=== PATIENT | female | born 1965 | race Two or more races ===

== ENCOUNTER 2016-11-13 11:58 | Emergency (ER) | payer OTHER ==
--- NOTE | 2016-11-13 13:19 | UCPHY ---
H & P Patient Type: New Chief Complaint Nursing Narrative: 3 DAYS NOT FEELING WELL, STUFFY NOSE, TEETH HURTING, BODY ACHES, LOW ENERGY, HEADACHE HPI/ROS: CHIEF COMPLAINT: Sinus congestion HISTORY OF PRESENT ILLNESS: This patient is a 51 year old woman presenting with three days of acute sinus congestion and rhinorrhea. It is associated with myalgias, episode of left ear pain and tinnitus yesterday, and decreased hearing in her left ear. Symptoms are mild-moderate in severity. She has been taking DayQuil for sinus congestion. She denies fever, cough, sore throat, chest pain, shortness of breath, vomiting, diarrhea, or dysuria. REVIEW OF SYSTEMS: A ten point review of systems was performed and is negative with the exception of the items mentioned in the HPI. Source: Patient Exam Limitations: No limitations - Personal History LMP (Females 10-55): 8-14 Days Ago Current Tetanus Diphtheria and Acellular Pertussis (TDAP): No - Medical/Surgical History Hx Asthma: No Hx Chronic Respiratory Disease: No Hx Diabetes: No Hx Cardiac Disease: No Hx Renal Disease: No Hx Cirrhosis: No Hx Alcoholism: No Hx HIV/AIDS: No Hx Splenectomy or Spleen Trauma: No Other PMH: C SECTIONS - Family History Significant Family History: No pertinent family hx - Social History Smoking Status: Never smoked Alcohol Use: Rarely Drug Use: None - Physical Exam Exam: General Appearance: Alert. Vital signs reviewed. Eyes: Pupils equal and round, no conjunctival injection, no discharge. Anicteric. ENT, Mouth: TMs clear bilaterally. Mucous membranes are moist, no oropharyngeal erythema or edema. Right maxillary sinus tenderness, mild. Neck: Mild anterior lymphadenopathy, supple. Respiratory: Lungs are clear to auscultation; no wheezes, rales, or rhonchi. Cardiovascular: Regular rate and rhythm; no murmur, rub, or gallop. Gastrointestinal: Abdomen is soft and nontender, no masses or organomegaly, bowel sounds normal. Skin: Warm and dry, no rashes on exposed skin, normal color. Back: Nontender to palpation over the thoracolumbar spine. No CVAT. Extremities: No lower extremity edema, no calf tenderness or swelling. Neurological: Alert and oriented. Moving all four extremities easily and equally. Psychiatric: Normal affect. Constitutional: Initial Vital Signs Temperature (C) 37.9 C 03/25/17 12:05 Heart Rate 84 11/13/16 12:05 Respiratory Rate 16 11/13/16 12:05 Blood Pressure 127/79 H 11/13/16 12:05 O2 Sat (%) 97 11/13/16 12:05 O2 Delivery Mode Room Air Allergies/Adverse Reactions: No Known Allergies Allergy (Unverified 11/13/16 12:09) Home Medications: Medication Instructions Recorded Vitamin D3 11/13/16 Medical Decision Making ED Course/Re-evaluation: This patient presents with three days of upper respiratory symptoms. Rapid influenza test is negative. I discussed that this is likely a viral syndrome/ viral upper respiratory infection. She will follow up with her primary care provider if not improving. Symptomatic treatment reviewed. Differential Diagnosis: I considered a ddx that includes but is not limited to influenza, sinusitis, viral and bacterial pharyngitis, URI, pneumonia. Departure - Departure Disposition: Home, Routine, Self-Care Clinical Impression: Upper respiratory infection Qualifiers: URI type: unspecified viral URI Qualified Code(s): J06.9 - Acute upper respiratory infection, unspecified; B97.89 - Other viral agents as the cause of diseases classified elsewhere Condition: Good Instructions: Upper Respiratory Infection (ED) Additional Instructions: I recommend Tylenol and ibuprofen for pain relief. Drink plenty of fluids. Over- the-counter cold medications and decongestants may be helpful to you. Follow up with your primary care physician if not improving. [facility] immediately for high fever, severe headache or neck pain, difficulty breathing, abdominal pain, rash or other worsening of condition. Adult Pain & Fever Control: We recommend Acetaminophen (Tylenol) and Ibuprofen (Motrin,Advil) for pain and fever control. When fever is high or pain severe, both drugs can be used at the same time, but at different intervals. Please note the time differences. Your dose is: Acetaminophen 650mg every 4 to 6 hours Ibuprofen 600mg every 6-8 hours with food Note: do not take Acetaminophen with Hydrocodone (Vicodin, Lortab) or Oycodone (Percocet). These medications also contain Acetaminophen. No more than 3000mg of Acetaminophen should be taken in 24 hours (for an adult). This patient was seen in the [facility] 11/13/16. She was not able to drive to [place] due to her illness, and therefore she was unable to be there to meet her sons in [place]. As a result, her sons are not able to use the airplane tickets that they have purchased. Referrals: VIVIEN VERGARA [Primary Care Provider] - As per Instructions Stand Alone Forms: Airline Excuse - PQRS PQRS Measurement: Does not apply. Report Scribed for: Karla Macedo Report Scribed by: Joy Eubanks Date of Report: 11/13/16 Time of Report: 13:29 Physician Review and Approval Statement: 11/13/16 16:13 Portions of this note were transcribed by the medical doctor md. I, Dr. Karla Macedo, personally performed the history, physical exam, and medical decision- making; and confirmed the accuracy of the information in the transcribed note.
[2016-11-13 13:48] VITALS: BP 122/85; PULSE 69; RESP 18; TEMP 98.6; O2SAT 96
== END 2016-11-13 13:47 | disposition home or self-care (01) ==
LOC: CED 11:58
DX: J06.9 Acute upper respiratory infection, unspecified (principal); B97.89 Other viral agents as the cause of diseases classified elsewhere
CPT/HCPCS: 87400-PO; 87880-PO; 99204-PO; G0463-PO